=== PATIENT | male | born 1960 | race Caucasian/White ===

== ENCOUNTER → 2017-11-01 | Outpatient (CLI) | payer OTHER ==
[~2017-11-01] MED LIST: IOPAMIDOL 370 MG/ML 200 ML INFUS..BTL INJ ONE; SODIUM CHLORIDE 0.9% 100 ML 100 ML ONE
[2017-11-01 11:20] LABS: BLOOD UREA NITROGEN 15 mg/dL (7-26); BUN/CREATININE RATIO 16 (6-25); CREATININE, SERUM 0.93 mg/dL (0.72-1.25); EST GLOMERULAR FILTRATION RATE > 60 ML/MIN (60-)
--- NOTE | 2017-11-01 14:32 | Diagnostic Imaging Report ---
EXAM: CT Angiogram of the right upper extremity with and without contrast INDICATION: Right arm pain COMPARISON: None. TECHNIQUE: The right upper extremity was scanned utilizing a multidetector helical scanner without and with contrast. Coronal and sagittal reformations were obtained. IV CONTRAST: 100 cc of ISovue 370 contrast ORAL CONTRAST: None. RADIATION DOSE: Total DLP: 2147.7 mGy*cm Estimated effective dose: (DLP x 0.015 x size factor) mSv COMPLICATIONS: None FINDINGS: The visualized right great vessels are patent. The right subclavian, axillary, and brachial arteries are patent without evidence of atherosclerotic changes, stenosis, or aneurysm. The right medial, ulnar, and interosseous appear patent to the distal arm, but are not well opacified distally, likely secondary to phase of contrast. The visualized soft tissues are unremarkable. No acute bony abnormality. Patchy dependent atelectasis in the partially visualized right lung. There is a calcified granuloma in the right upper lobe. CONCLUSION: Unremarkable right upper extremity CT angiogram. No evidence of brachial artery aneurysm. Signed by: Dr. Kunal Oropeza MD on 11/01/2017 2:29 PM
== END ==
LOC: CT 10:35
PROVIDERS: ATTEND Internal Medicine Interventional Cardiology
DX: M79.621 Pain in right upper arm (principal); I72.8 Aneurysm of other specified arteries
CPT/HCPCS: 36415; 73206; 82565; 84520; Q9967